=== PATIENT | male | born 1985 | race Caucasian/White ===

== ENCOUNTER 2021-07-01 19:44 | Emergency (ER) | payer OTHER ==
[~2021-07-01] VITALS: Ht 175.3 cm; Wt 77.3 kg
[2021-07-01 20:03] VITALS: BP 126/76
[2021-07-01] MEDS ORDERED: acetaminophen 325mg tablet PO ONE (20:15)
--- NOTE | 2021-07-01 21:03 | NUR ---
LEFT BEFORE DC
== END 2021-07-01 22:02 | disposition home or self-care (01) ==
LOC: ER 19:45
DX: U07.1 COVID-19 (principal); R50.9 Fever, unspecified; R06.02 Shortness of breath; R05 Cough; E86.0 Dehydration; Z72.89 Other problems related to lifestyle
CPT/HCPCS: 36415; 99283; U0003; U0005